=== PATIENT | female | born 1935 | race Caucasian/White ===

== ENCOUNTER → 2016-04-13 | Outpatient (REF) | payer MEDICARE, MEDICAID ==
[~2016-04-13] MED LIST: /MOXI40TA; /PANT40TA; /WARF25TA; /WARF5TA; ACET65TA; ALBU1.25 INH; ALBU17IN2 NEB; ARTH1TAB PO; ASPI81TA45 PO; BABY81CH; COUM2TAB10 PO; COUMADIN5 PO; DOCU10CA PO; FORM12CA INH; HCTZ25 PO; IPRASOL4 NEB; IRON65TA PO; LEVO50TA5 PO; LISI20TA5; MIRA3350 PO; NICO14DI3; NICO21DI4; NICO21DI5 TD; NORV5TAB; NORV5TAB PO; NYAM10003 TOP; Oxygen; PRED20TA; PULM0.5S INH; PULM1SUS INH; TYLE325T5 PO; ULTR37.52 PO; VESICARE; VESICARE PO; VITA-113 SQ; XARE20TA PO; ZEST20TA8 PO; ZESTORET20 PO; ZOCO20TA PO; ZOCOR20 PO; oxygen
[2016-04-13 14:22] LABS: FREE T4 1.13 NG/DL (0.76-1.46)
== END ==
LOC: M SFHCPLAZ 11:33
PROVIDERS: ATTEND Family Medicine
DX: E03.9 Hypothyroidism, unspecified (principal); Z51.81 Encounter for therapeutic drug level monitoring; Z79.01 Long term (current) use of anticoagulants
CPT/HCPCS: 84439; 84443; 85610; G0463

== ENCOUNTER → 2016-05-13 | Outpatient (REF) | payer MEDICARE, MEDICAID ==
[2016-05-13 18:23] LABS: INR 1.57
[2016-05-13 18:47] LABS: BASO % 0.3 % (0.0-1.0); EOS # 0.1 K/mm3 (0.0-0.50); EOS % 1.7 % (0.0-3.0); LARGE UNSTAINED CELL # 0.2 K/mm3 (0.0-0.4); LARGE UNSTAINED CELL % 2.3 % (0.0-4.0); LYMPH # 1.8 K/mm3 (1.5-4.5); LYMPH % 20.8 % (24.0-44.0); MEAN CORPUSCULAR HEMOGLOBIN 31.1 pg (27.0-33.0); MEAN CORPUSCULAR HGB CONC 31.7 g/dl (32.0-36.5); MEAN CORPUSCULAR VOLUME 97.9 fl (80.0-96.0); MONO # 0.6 K/mm3 (0.0-0.8); MONO % 8.1 % (0.0-5.0); NEUTROPHILS # 5.2 K/mm3 (1.8-7.7); NEUTROPHILS % 66.7 % (36.0-66.0); PLATELET COUNT, AUTOMATED 233 k/mm3 (150-450); RED CELL DISTRIBUTION WIDTH 13.3 % (11.5-14.5); WHITE BLOOD COUNT 7.8 K/mm3 (4.0-10.0)
[2016-05-13 18:56] LABS: ALBUMIN 3.7 GM/DL (3.2-5.2); ALBUMIN/GLOBULIN RATIO 1.12 (1.00-1.93); BILIRUBIN,TOTAL 0.2 MG/DL (0.2-1.0); CALCIUM LEVEL 8.8 MG/DL (8.8-10.2); CREATININE FOR GFR 1.19 MG/DL (0.55-1.02); GLOMERULAR FILTRATION RATE 46.6 (>39); POTASSIUM SERUM 5.1 MEQ/L (3.5-5.1)
== END ==
LOC: M SFHCPLAZ 14:38
PROVIDERS: ATTEND Nurse Practitioner Family
DX: I48.2 Chronic atrial fibrillation (principal); J44.9 Chronic obstructive pulmonary disease, unspecified; I10 Essential (primary) hypertension
CPT/HCPCS: 36415; 80053; 85025; 85610; G0463

== ENCOUNTER → 2016-06-15 | Day surgery (SDC) | payer MEDICARE, MEDICAID ==
[~2016-06-15] VITALS: Ht 160 cm; Wt 113.4 kg
[~2016-06-15] MED LIST changes: +ACETAMINOPHEN 325 MG TAB PO PRN; +ACETYLCHOLINE OPHTH SOLN 1% 2ML As Ordered ONE; +AcetaZOLAMIDE 500 MG ER CAP PO ONE; +BSS with VANC/TOB/EPI for EYE CASES IR ONE; +CYCLOPENTOLATE 2% OPHTH SOLN XX ONE; +D5W/0.2% SODIUM CHLORIDE 250 ML IV SCH; +HEALON DUET (HEALON 10MG/ML 0.55ML & HEALON ENDOCOAT 30MG/ML 0.85ML) As Ordered ONE; +KETOROLAC 0.5% OPHTH SOLN OS ONE; +LIDOCAINE 1% SDV 5 ML VIAL As Ordered ONE; +LIDOCAINE 4% INJ 5 ML AMP OU ONE; +MIDAZOLAM INJ 2 MG/2 ML VIAL (J2250) As Ordered ONE; +MOXIFLOXACIN IN BSS 0.25MG/0.25ML INTRACAMERAL INJ (OR EYE ONLY)(J2280) As Ordered ONE; +OFLOXACIN 0.3 % (OCUFLOX) OPTH SOL 5ML XX ONE; +PHENYLEPHRINE 2.5% OPHTH SOL 2ML XX ONE; +POVIDONE-IODINE 5% OPHTH PREP SOL 30ML As Ordered ONE; +PROPARACAINE 0.5% OPHTH SOL 15ML OS PRN; +PROPARACAINE 0.5% OPHTH SOL 15ML XX PRN; +TRIAMCINOLONE PRES FR 40 MG/ML 1ML(TRIESENCE)(OR EYE ONLY)(J3300 PER 1MG) As Ordered ONE; +TRIMETHOBENZAMIDE 300 MG CAP PO PRN; +TROPICAMIDE 1% OPHTH SOLN 2 ML XX ONE; +fentaNYL 100 MCG/2 ML INJECTION (J3010) As Ordered ONE
[2016-06-15 13:15] VITALS: BP 150/72
== END | disposition home or self-care (01) ==
LOC: M SDC 10:37
PROVIDERS: ATTEND Ophthalmology
DX: H26.9 Unspecified cataract (principal); I10 Essential (primary) hypertension; E78.5 Hyperlipidemia, unspecified; E03.9 Hypothyroidism, unspecified; Z86.73 Personal history of transient ischemic attack (TIA), and cerebral infarction without residual deficits; Z79.01 Long term (current) use of anticoagulants; Z99.81 Dependence on supplemental oxygen; Z79.899 Other long term (current) drug therapy; R06.02 Shortness of breath
CPT/HCPCS: 66984; 67515; J2250; J2280; J3010; J3300; V2632

== ENCOUNTER → 2016-07-15 | Outpatient (REF) | payer MEDICARE, MEDICAID ==
[~2016-07-15] MED LIST changes: -ACETAMINOPHEN 325 MG TAB PO PRN; -ACETYLCHOLINE OPHTH SOLN 1% 2ML As Ordered ONE; -AcetaZOLAMIDE 500 MG ER CAP PO ONE; -BSS with VANC/TOB/EPI for EYE CASES IR ONE; -CYCLOPENTOLATE 2% OPHTH SOLN XX ONE; -D5W/0.2% SODIUM CHLORIDE 250 ML IV SCH; -HEALON DUET (HEALON 10MG/ML 0.55ML & HEALON ENDOCOAT 30MG/ML 0.85ML) As Ordered ONE; -KETOROLAC 0.5% OPHTH SOLN OS ONE; -LIDOCAINE 1% SDV 5 ML VIAL As Ordered ONE; -LIDOCAINE 4% INJ 5 ML AMP OU ONE; -MIDAZOLAM INJ 2 MG/2 ML VIAL (J2250) As Ordered ONE; -MOXIFLOXACIN IN BSS 0.25MG/0.25ML INTRACAMERAL INJ (OR EYE ONLY)(J2280) As Ordered ONE; -OFLOXACIN 0.3 % (OCUFLOX) OPTH SOL 5ML XX ONE; -PHENYLEPHRINE 2.5% OPHTH SOL 2ML XX ONE; -POVIDONE-IODINE 5% OPHTH PREP SOL 30ML As Ordered ONE; -PROPARACAINE 0.5% OPHTH SOL 15ML OS PRN; -PROPARACAINE 0.5% OPHTH SOL 15ML XX PRN; -TRIAMCINOLONE PRES FR 40 MG/ML 1ML(TRIESENCE)(OR EYE ONLY)(J3300 PER 1MG) As Ordered ONE; -TRIMETHOBENZAMIDE 300 MG CAP PO PRN; -TROPICAMIDE 1% OPHTH SOLN 2 ML XX ONE; -fentaNYL 100 MCG/2 ML INJECTION (J3010) As Ordered ONE
[2016-07-15 15:59] LABS: BASO % 0.4 % (0.0-1.0); EOS # 0.1 K/mm3 (0.0-0.50); EOS % 0.9 % (0.0-3.0); LARGE UNSTAINED CELL # 0.2 K/mm3 (0.0-0.4); LARGE UNSTAINED CELL % 2.1 % (0.0-4.0); LYMPH # 1.6 K/mm3 (1.5-4.5); LYMPH % 19.5 % (24.0-44.0); MEAN CORPUSCULAR HEMOGLOBIN 30.8 pg (27.0-33.0); MEAN CORPUSCULAR HGB CONC 32.2 g/dl (32.0-36.5); MEAN CORPUSCULAR VOLUME 95.6 fl (80.0-96.0); MONO # 0.5 K/mm3 (0.0-0.8); MONO % 6.1 % (0.0-5.0); NEUTROPHILS # 5.4 K/mm3 (1.8-7.7); PLATELET COUNT, AUTOMATED 235 k/mm3 (150-450); RED CELL DISTRIBUTION WIDTH 13.1 % (11.5-14.5); WHITE BLOOD COUNT 7.6 K/mm3 (4.0-10.0)
[2016-07-15 16:01] LABS: INR 2.12
[2016-07-15 16:24] LABS: ALBUMIN/GLOBULIN RATIO 1.18 (1.00-1.93); BILIRUBIN,TOTAL 0.4 MG/DL (0.2-1.0); CALCIUM LEVEL 8.8 MG/DL (8.8-10.2); CREATININE FOR GFR 1.18 MG/DL (0.55-1.02); POTASSIUM SERUM 4.6 MEQ/L (3.5-5.1); TOTAL PROTEIN 7.4 GM/DL (6.4-8.2)
== END ==
LOC: M SFHCPLAZ 14:19
PROVIDERS: ATTEND Nurse Practitioner Family
DX: Z01.818 Encounter for other preprocedural examination (principal); I48.2 Chronic atrial fibrillation; Z79.01 Long term (current) use of anticoagulants; Z79.899 Other long term (current) drug therapy
CPT/HCPCS: 80053; 85025; 85610; G0463

== ENCOUNTER 2016-10-10 11:51 | Emergency (ER) | payer MEDICARE, MEDICAID ==
[~2016-10-10 11:51] MED LIST changes: -COUM2TAB10 PO; +COUM2TAB22 PO; -ULTR37.52 PO; +ULTR37.54 PO
[2016-10-10] MEDS ORDERED: ASPIRIN 81 MG CHEW TABLET PO ONE (12:15)
[2016-10-10] MEDS ORDERED: IPRATROPIUM 0.5MG/ALBUTEROL 2.5MG INH SOL UD 3ML (DUONEB)(J7620) NEB ONE (12:30)
[2016-10-10 12:36] LABS: BASO % 0.5 % (0.0-1.0); EOS # 0.2 K/mm3 (0.0-0.50); EOS % 2.7 % (0.0-3.0); LARGE UNSTAINED CELL # 0.1 K/mm3 (0.0-0.4); LARGE UNSTAINED CELL % 2.1 % (0.0-4.0); LYMPH # 1.4 K/mm3 (1.5-4.5); LYMPH % 19.3 % (24.0-44.0); MEAN CORPUSCULAR HGB CONC 30.7 g/dl (32.0-36.5); MEAN CORPUSCULAR VOLUME 97.5 fl (80.0-96.0); MONO # 0.4 K/mm3 (0.0-0.8); MONO % 6.6 % (0.0-5.0); NEUTROPHILS # 4.7 K/mm3 (1.8-7.7); NEUTROPHILS % 68.8 % (36.0-66.0); PLATELET COUNT, AUTOMATED 267 k/mm3 (150-450); RED CELL DISTRIBUTION WIDTH 13.7 % (11.5-14.5); WHITE BLOOD COUNT 6.8 K/mm3 (4.0-10.0)
[2016-10-10 12:54] LABS: ALBUMIN 3.5 GM/DL (3.2-5.2); ALBUMIN/GLOBULIN RATIO 1.06 (1.00-1.93); ALKALINE PHOSPHATASE 97 U/L (45-117); ALT/SGPT 16 U/L (12-78); ANION GAP 5 MEQ/L (8-16); AST/SGOT 11 U/L (15-37); BILIRUBIN,DIRECT < 0.1 MG/DL (0.0-0.2); BILIRUBIN,TOTAL 0.3 MG/DL (0.2-1.0); BLOOD UREA NITROGEN 27 MG/DL (7-18); CALCIUM LEVEL 8.6 MG/DL (8.8-10.2); CARBON DIOXIDE LEVEL 29 MEQ/L (21-32); CHLORIDE LEVEL 107 MEQ/L (98-107); CREATININE FOR GFR 1.16 MG/DL (0.55-1.02); GLUCOSE, FASTING 108 MG/DL (83-110); POTASSIUM SERUM 4.4 MEQ/L (3.5-5.1); SODIUM LEVEL 141 MEQ/L (136-145); TOTAL PROTEIN 6.8 GM/DL (6.4-8.2)
--- NOTE | 2016-10-10 13:26 | REP ---
PORTABLE CHEST, ONE VIEW: HISTORY: Chest pain. COMPARISON: 06/29/2014 An increase in interstitial markings is present in the lungs consistent with chronic interstitial fibrosis. The cardiac silhouette is enlarged. The pulmonary vasculature is normal in appearance. IMPRESSION: 1. Chronic interstitial fibrosis. 2. Cardiomegaly. Signed by Wang Rabago MD 10/10/2016 01:42 P
--- NOTE | 2016-10-10 13:43 | REP ---
CT HEAD WITHOUT CONTRAST: HISTORY: Altered mental status. COMPARISON: 05/31/2008 Areas of decreased attenuation are present in the basal ganglia. These represent old lacunar infarctions. Areas of decreased attenuation are present in the periventricular and subcortical white matter. This represents small vessel ischemic disease. There is no intraparenchymal hemorrhage, mass or midline shift. The ventricular system and cortical sulci are dilated consistent with mild volume loss. There is no extracerebral collection. Mucosal thickening is present in the sphenoid sinus. IMPRESSION: 1. Old bilateral basal ganglia lacunar infarctions. 2. Small vessel ischemic disease. 3. Mild volume loss. Signed by Wang Rabago MD 10/10/2016 01:51 P
--- NOTE | 2016-10-10 14:40 | REP ---
AP AND LATERAL RIGHT KNEE, TWO VIEWS: HISTORY: None There is no acute fracture or dislocation. There is narrowing of the joint space with associated osteophyte formation. IMPRESSION: There is no acute fracture or dislocation. Signed by Wang Rabago MD 10/10/2016 02:49 P
[2016-10-10 16:06] VITALS: BP 121/57
--- NOTE | 2016-10-10 16:59 | ECGEPIP ---
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
== END 2016-10-10 16:22 | disposition home or self-care (01) ==
LOC: M ED 11:51 → EDBD 11:51 → M ED 16:22
DX: R53.1 Weakness (principal); I10 Essential (primary) hypertension; E78.5 Hyperlipidemia, unspecified; J44.9 Chronic obstructive pulmonary disease, unspecified; M19.90 Unspecified osteoarthritis, unspecified site; I51.7 Cardiomegaly; E03.9 Hypothyroidism, unspecified; Z86.73 Personal history of transient ischemic attack (TIA), and cerebral infarction without residual deficits; F17.200 Nicotine dependence, unspecified, uncomplicated; Z79.01 Long term (current) use of anticoagulants; Z79.899 Other long term (current) drug therapy; Z99.81 Dependence on supplemental oxygen

== ENCOUNTER → 2016-10-16 | Outpatient (REF) | payer MEDICARE, MEDICAID ==
[2016-10-16 19:53] LABS: INR 3.14
== END ==
LOC: M SFHCPLAZ 15:20
PROVIDERS: ATTEND Family Medicine
DX: Z51.81 Encounter for therapeutic drug level monitoring (principal); Z79.01 Long term (current) use of anticoagulants
CPT/HCPCS: 85610; G0463

== ENCOUNTER → 2016-11-09 | Outpatient (CLI) | payer MEDICARE, MEDICAID ==
--- NOTE | 2016-11-09 16:42 | REP ---
Bilateral carotid artery duplex ultrasound: Peak flow velocity analysis: RIGHT LEFT ICA. Peak flow velocity cm/sec 41 125 ICA Diastolic flow velocity cm/sec 11 46 ICA/CCA Ratio 0.59 1.69 There is moderate atheromatous plaque in the common carotid artery and bulb on the right and in the common carotid artery bulb and proximal ICA on the left. The peak flow velocities are normal bilaterally. There is less than 50% stenosis bilaterally. There is no significant stenosis on the right on the left. There is antegrade flow in the vertebral arteries bilaterally Signed by Mauricio Antony MD 11/09/2016 04:33 P
== END ==
LOC: M RAD 14:19
PROVIDERS: ATTEND Family Medicine
DX: I65.21 Occlusion and stenosis of right carotid artery (principal)

== ENCOUNTER 2018-08-28 01:34 | Inpatient (IN) | payer MEDICARE, MEDICAID ==
[~2018-08-28] VITALS: Ht 172.7 cm; Wt 75.8 kg
[2018-08-28] VITALS (17 sets, daily range): BP systolic 73–105; BP diastolic 42–56; O2SAT 100
[~2018-08-28 01:34] MED LIST changes: -/MOXI40TA; -/PANT40TA; -/WARF25TA; -/WARF5TA; +AVEL1TAB2; +COUM1TAB17; +COUM1TAB18; +IPRA0.00 NEB; -IPRASOL4 NEB; -NICO21DI5 TD; +NICO21DI6 TD; +PROT1TAB2
[2018-08-28] MEDS ORDERED: NOREPINEPHRINE BITARTRATE 8 MG in D5W 492 ML IV SCH ×8 (01:45→12:00)
[2018-08-28] MEDS ORDERED: NS 1,000 ML IV ONE (01:45)
[2018-08-28 01:56] LABS: ABG BASE EXCESS -15.4 (-2.0-2.0); ABG HCO3 13.4 MEQ/L (22.0-26.0); ABG O2 SATURATION 99.2 % (95.0-99.0); ABG PARTIAL PRESSURE CO2 49.2 mmHg (35.0-45.0); ABG PARTIAL PRESSURE O2 190.3 mmHg (75.0-100.0); ABG STANDARD HCO3 12.1 MEQ/L (22.0-26.0); ABG TOTAL CO2 14.9 MEQ/L (23.0-31.0)
[2018-08-28 01:59] LABS: ABG pH (ARTERIAL) 7.054 UNITS (7.350-7.450)
[2018-08-28 03:18] LABS: BASO % 0.2 % (0.0-1.0); EOS % 0.4 % (0.0-3.0); LYMPH # 0.9 10^3/uL (1.5-4.5); LYMPH % 9.7 % (24.0-44.0); MEAN CORPUSCULAR HEMOGLOBIN 17.9 pg (27.0-33.0); MEAN CORPUSCULAR HGB CONC 23.3 g/dl (32.0-36.5); MEAN CORPUSCULAR VOLUME 76.9 fl (80.0-96.0); MONO # 0.1 10^3/uL (0.0-0.8); MONO % 1.4 % (0.0-5.0); NEUTROPHILS # 7.8 10^3/uL (1.8-7.7); NEUTROPHILS % 83.7 % (36.0-66.0); PLATELET COUNT, AUTOMATED 258 10^3/uL (150-450); RED BLOOD COUNT 2.73 10^6/uL (4.00-5.40); WHITE BLOOD COUNT 9.3 10^3/uL (4.0-10.0)
[2018-08-28 03:24] LABS: HEMOGLOBIN 4.9 g/dl (12.0-15.5)
[2018-08-28 03:29] LABS: INR 1.31; PROTHROMBIN TIME 16.5 SECONDS (12.1-14.4)
[2018-08-28 03:30] LABS: PARTIAL THROMBOPLASTIN TIME 32.1 SECONDS (25.4-37.6)
[2018-08-28 03:38] LABS: BILIRUBIN, URINE MANUAL NEGATIVE (NEGATIVE); GLUCOSE, URINE (UA) MANUAL NEGATIVE (NEGATIVE); KETONE, URINE MANUAL NEGATIVE (NEGATIVE); UROBILINOGEN, URINE MANUAL NORMAL (NORMAL)
[2018-08-28 03:40] LABS: ALBUMIN 2.6 GM/DL (3.2-5.2); BILIRUBIN,DIRECT 0.2 MG/DL (0.0-0.2); BILIRUBIN,TOTAL 0.4 MG/DL (0.2-1.0); MB/CK RELATIVE INDEX 2.21 (< OR =4); TOTAL PROTEIN 5.8 GM/DL (6.4-8.2); TROPONIN I 0.04 NG/ML (< 0.10)
[2018-08-28 03:44] LABS: RBC, URINE TNTC /hpf (0-3)
[2018-08-28 03:45] LABS: BACTERIA, URINE SMALL AMOUNT; SQUAMOUS EPITHELIAL CELL URINE MOD AMOUNT /hpf (SMALL AMT); TRANSITIONAL EPI CELLS, URINE MOD AMOUNT /hpf
[2018-08-28 03:48] LABS: AMORPHOUS SEDIMENT, URINE MOD AMOUNT (NEGATIVE)
[2018-08-28 03:52] LABS: HYALINE CAST, URINE NONE SEEN /lpf (0-1); TRIPLE PHOSPHATE CRYSTAL,URINE SMALL AMOUNT /hpf
[2018-08-28] MEDS ORDERED: PIPERACILLIN/TAZOBACTAM SOD 3.375 GM in D5W MINI-BAG PLUS 50 ML IV ONE (04:00)
[2018-08-28] MEDS ORDERED: APAP325T4 PO (04:03)
[2018-08-28] MEDS ORDERED: ELIQ2.5T PO (04:03)
[2018-08-28] MEDS ORDERED: HYDR-3713 PO (04:03)
[2018-08-28] MEDS ORDERED: PATIENT COMMENTS (04:05)
[2018-08-28 04:31] LABS: ABG BASE EXCESS -8.4 (-2.0-2.0); ABG HCO3 17.6 MEQ/L (22.0-26.0); ABG O2 SATURATION 98.6 % (95.0-99.0); ABG PARTIAL PRESSURE CO2 38.9 mmHg (35.0-45.0); ABG PARTIAL PRESSURE O2 126.9 mmHg (75.0-100.0); ABG STANDARD HCO3 17.5 MEQ/L (22.0-26.0); ABG TOTAL CO2 18.8 MEQ/L (23.0-31.0); ABG pH (ARTERIAL) 7.274 UNITS (7.350-7.450)
[2018-08-28] MEDS ORDERED: MIDAZOLAM INJ 2 MG/2 ML VIAL (J2250) IV PRN (05:30)
[2018-08-28 05:32] LABS: BASO % 0.1 % (0.0-1.0); HEMATOCRIT 18.5 % (36.0-47.0); LYMPH # 0.4 10^3/uL (1.5-4.5); LYMPH % 4.5 % (24.0-44.0); MEAN CORPUSCULAR HEMOGLOBIN 18.6 pg (27.0-33.0); MEAN CORPUSCULAR HGB CONC 24.9 g/dl (32.0-36.5); MEAN CORPUSCULAR VOLUME 74.9 fl (80.0-96.0); MONO # 0.4 10^3/uL (0.0-0.8); MONO % 3.7 % (0.0-5.0); NEUTROPHILS # 8.9 10^3/uL (1.8-7.7); NEUTROPHILS % 90.5 % (36.0-66.0); PLATELET COUNT, AUTOMATED 203 10^3/uL (150-450); RED BLOOD COUNT 2.47 10^6/uL (4.00-5.40); WHITE BLOOD COUNT 9.8 10^3/uL (4.0-10.0)
[2018-08-28 05:35] LABS: HEMOGLOBIN 4.6 g/dl (12.0-15.5)
--- NOTE | 2018-08-28 05:44 | REPVR ---
EXAM: CT Head Without Contrast EXAM DATE/TIME: 08/28/2018 4:06 AM CLINICAL HISTORY: 83 years old, female; Signs and symptoms; Altered mental status/memory loss; Confusion or disorientation; Additional info: AMS TECHNIQUE: Imaging protocol: Axial computed tomography images of the head without contrast. Radiation optimization: All CT scans at this facility use at least one of these dose optimization techniques: automated exposure control; mA and/or kV adjustment per patient size (includes targeted exams where dose is matched to clinical indication); or iterative reconstruction. COMPARISON: CT Head without contrast 10/10/2016 12:38 PM FINDINGS: Brain: Small old lacunar infarct in left basal ganglia. Ventricles: Normal. No ventriculomegaly. Bones/joints: Slight deformity of the nasal bones which likely reflects old injury. Sinuses: Minimal bilateral maxillary, sphenoid and ethmoid sinus mucosal thickening. Mastoid air cells: Opacification of mastoid air cells bilaterally and middle ear cavities, left greater than right. Soft tissues: Unremarkable. IMPRESSION: 1. Bilateral mastoiditis and otitis media, increased since 10/10/2016. 2. Decreased sphenoid sinus disease. Minimal residual remains. There is also minimal bilateral maxillary and ethmoid sinus disease. 3. Probable old nasal fractures. 4. Small old lacunar infarct in the lateral left basal ganglia. 5. Otherwise negative noncontrast head CT. Electronically signed by: Jean Marie Ribeiro On 08/28/2018 05:44:26 AM
--- NOTE | 2018-08-28 05:57 | REPVR ---
EXAM: CT Cervical Spine Without Contrast EXAM DATE/TIME: 08/28/2018 4:06 AM CLINICAL HISTORY: 83 years old, female; Signs and symptoms; Other: Altered mental status; Additional info: AMS TECHNIQUE: Imaging protocol: Axial computed tomography images of the cervical spine without contrast. Coronal and sagittal reformatted images were created and reviewed. Radiation optimization: All CT scans at this facility use at least one of these dose optimization techniques: automated exposure control; mA and/or kV adjustment per patient size (includes targeted exams where dose is matched to clinical indication); or iterative reconstruction. COMPARISON: US Duplex,carotid (complete) 11/09/2016 2:44 PM FINDINGS: Tubes, catheters and devices: Right internal jugular central line in position. ET tube in position. Vertebrae: Lucency extending through the anterosuperior margin of the C5 segment which appears well marginated and corticated suggesting residua of old fracture. C2-C3: The disc is well-maintained. There are degenerative changes, greatest in the right apophyseal joint with no spinal or foraminal stenosis. C3-C4: Slight anterior listhesis with bilateral degenerative changes of the apophyseal joints, left greater than right. There is low normal size of the neural foramen. C4-C5: Slight anterolisthesis and bilateral degenerative changes, greatest in the left apophyseal joint. No spinal stenosis. There is mild left neural foraminal stenosis. C5-C6: Mild interspace narrowing with minimal posterior osteophytes and bilateral degenerative changes. There is low normal size of the spinal canal and mild bilateral neural foraminal stenosis. C6-C7: Mild interspace narrowing with slight anterolisthesis and bilateral degenerative changes with no significant spinal or foraminal stenosis. C7-T1: Mild interspace narrowing with slight anterior listhesis. No significant spinal or foraminal stenosis. Other bones/joints: Old right clavicular fracture. Soft tissues: Unremarkable. Sinuses: Minimal sphenoid sinus mucosal thickening. Mastoid air cells: Opacification of mastoid air cells and middle ear cavities. Lungs: Biapical interstitial prominence and minimal infiltrates. Pleural space: Bilateral pleural effusions, left greater than right. IMPRESSION: 1. Right internal jugular central line in position. 2. ET tube in position. 3. Bilateral pleural effusions, left greater than right with biapical interstitial prominence and minimal infiltrates. 4. Bilateral mastoiditis and otitis media. 5. Minimal sphenoid sinus disease. 6. Multilevel degenerative changes of the cervical spine with no spinal stenosis. There are varying degrees of neural foraminal stenosis. 7. No acute fracture or subluxation. 8. Lucency extending through the anterosuperior aspect of the C5 segment suggesting residua of old fracture. Electronically signed by: Jean Marie Ribeiro On 08/28/2018 05:56:17 AM
--- NOTE | 2018-08-28 06:10 | REPVR ---
EXAM: CT Abdomen and Pelvis Without Contrast EXAM DATE/TIME: 08/28/2018 4:06 AM CLINICAL HISTORY: 83 years old, female; Signs and symptoms; Other: Altered mental status; Additional info: AMS TECHNIQUE: Imaging protocol: Axial computed tomography images of the abdomen and pelvis without contrast. Coronal and sagittal reformatted images were created and reviewed. Radiation optimization: All CT scans at this facility use at least one of these dose optimization techniques: automated exposure control; mA and/or kV adjustment per patient size (includes targeted exams where dose is matched to clinical indication); or iterative reconstruction. COMPARISON: CT ABD PELVIS W/O CONTRAST 09/07/2013 11:16 AM FINDINGS: Tubes, catheters and devices: Central line extending just into the right atrium. Lungs: Minimal infiltrates in the lateral right middle lobe. Pleural space: Mild bilateral pleural effusions with left lower lobe and to a lesser degree lingular and right lower lobe atelectasis. Heart: Trace pericardial effusion. ABDOMEN: Liver: Normal. No mass. Gallbladder and bile ducts: Normal. No calcified stones. No ductal dilation. Pancreas: Normal. No ductal dilation. Spleen: Normal. No splenomegaly. Adrenals: Slight fullness of the adrenals bilaterally which may reflect hyperplasia. Kidneys and ureters: There are left renal cysts measuring up to 3.3 cm. Stomach and bowel: There is colonic diverticulosis without evidence of diverticulitis. Appendix: Question of partial visualization of a normal appendix. PELVIS: Bladder: There is a Weinstein catheter in the bladder. Reproductive: Gas within the fundal endometrium of the uterus. Mass extending anteriorly from the uterus measuring 5.6 cm with low attenuation centrally may reflect a degenerating fibroid. ABDOMEN and PELVIS: Intraperitoneal space: Normal. No free air. No significant fluid collection. Bones/joints: Fractures of the left 6th and 7th ribs anterolaterally and the right 5th-7th ribs anterolaterally. 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 Soft tissues: Unremarkable. Vasculature: There is prominent atherosclerotic calcification of the abdominal aorta with extension into the iliac arteries. Lymph nodes: Normal. No enlarged lymph nodes. IMPRESSION: 1. Bilateral pleural effusions with left lower lobe and to a lesser degree lingular and right lower lobe atelectasis, new since 09/07/2013. 2. Minimal infiltrates in the lateral right middle lobe which are new since the prior study. 3. Trace pericardial effusion. 4. Acute appearing fractures of bilateral ribs anterolaterally. 5. Weinstein catheter in the bladder. 6. Colonic diverticulosis without diverticulitis. 7. Gas within the fundal endometrium of the uterus of uncertain etiology. 8. Inhomogeneous mass extending anteriorly from the uterine fundus which may reflect a degenerating fibroid measuring 5.6 cm and is similar to 09/07/2013. Electronically signed by: Jean Marie Ribeiro On 08/28/2018 06:09:27 AM
--- NOTE | 2018-08-28 06:19 | REPVR ---
EXAM: CT Chest Without Contrast EXAM DATE/TIME: 08/28/2018 4:06 AM CLINICAL HISTORY: 83 years old, female; Signs and symptoms; Other: Altered mental status; Additional info: AMS TECHNIQUE: Imaging protocol: Axial computed tomography images of the chest without intravenous contrast. Coronal and sagittal reformatted images were created and reviewed. Radiation optimization: All CT scans at this facility use at least one of these dose optimization techniques: automated exposure control; mA and/or kV adjustment per patient size (includes targeted exams where dose is matched to clinical indication); or iterative reconstruction. COMPARISON: CR Chest, 1 view 08/28/2018 2:50 AM FINDINGS: Tubes, catheters and devices: ET tube with the tip 13 mm above the laz. Right internal jugular central line to the cavoatrial junction. Lungs: Interstitial prominence with patchy infiltrates in the remaining lungs and scattered bullous change. Pleural space: Mild bilateral pleural effusions with complete atelectasis of the left lower lobe and moderate atelectasis of the lingula and right lower lobe. There is mild bilateral upper lobe atelectasis. Heart: Trace pericardial effusion. Aorta: The ascending thoracic aorta measures 35 mm. Lymph nodes: Unremarkable. No enlarged lymph nodes. Bones/joints: Degenerative changes of the shoulders. Acute appearing fractures of the right 3rd-7th ribs anterolaterally and the left 3rd-7th ribs anterolaterally. Soft tissues: Unremarkable. Kidneys and ureters: There is a left renal cyst measuring up to 3.3 cm. IMPRESSION: 1. ET tube with the tip 13 mm above the laz. 2. Right internal jugular central line to the cavoatrial junction. 3. Mild bilateral pleural effusions with complete atelectasis of the left lower lobe, moderate atelectasis of the lingula and right lower lobe and mild bilateral upper lobe atelectasis. 4. Interstitial prominence with patchy infiltrates and scattered bullous change in the remaining lungs. 5. Trace pericardial fusion. 6. Acute appearing nondisplaced fractures of the 3rd-7th ribs bilaterally at the anterolateral aspects. 7. Otherwise negative CT chest. Electronically signed by: Jean Marie Ribeior On 08/28/2018 06:18:49 AM
--- NOTE | 2018-08-28 06:40 | ECGEPIP ---
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
--- NOTE | 2018-08-28 07:15 | REP ---
Clinical: Status post intubation. Technique: Two portable semiupright views of the chest. Findings: Most recent image demonstrates the endotracheal tube at the laz. Right IJ line with tip in the right atrium. Large left pleural effusion obscures the cardiac silhouette. Underlying left lower lobe atelectasis/consolidation along with moderate right basilar opacity noted. No pneumothorax. Skeletal structures demonstrate age-related changes. Impression: 1. Endotracheal tube requires repositioning. 2. Large left pleural effusion along with bibasilar opacities (left greater than right). Electronically Signed by Ankur Palacios MD 08/28/2018 07:06 A
[2018-08-28 07:33] LABS: CALCIUM LEVEL 7.4 MG/DL (8.8-10.2); CREATININE FOR GFR 1.6 MG/DL (0.55-1.30); GLOMERULAR FILTRATION RATE 32.9 (>32); MAGNESIUM LEVEL 2.4 MG/DL (1.8-2.4); PHOSPHORUS LEVEL 4.1 MG/DL (2.5-4.9); POTASSIUM SERUM 4.7 MEQ/L (3.5-5.1)
[2018-08-28 08:01] LABS: MB/CK RELATIVE INDEX 2.55 (< OR =4); TROPONIN I 0.12 NG/ML (< 0.10)
--- NOTE | 2018-08-28 08:03 | HPE ---
DATE OF ADMISSION: 08/28/2018 CHIEF COMPLAINT: Cardiac arrest. HISTORY OF PRESENT ILLNESS: History was obtained from the patient's family and from the chart as she is intubated and unable to provide a history. Ms. Dejesus is an 83-year-old female with a history of atrial fibrillation, pulmonary embolism (PE) - on anticoagulation, CVA, chronic obstructive pulmonary disease (COPD) with chronic hypoxemic respiratory failure - on 2 liters nasal cannula oxygen supplementation, history of previous gastrointestinal (GI) bleed, hypothyroidism, history of an ovarian mass who presented to the hospital after cardiac arrest at home. As per patient's family, she had been complaining of increasing lethargy and sleepiness for the past few days as well as intermittent nausea. Earlier that day, the patient had been feeling nauseous, did not have any episodes of vomiting. She did not notice any blood in her stool. She had denied any chest pain. She has chronic shortness of breath, which is unchanged. The patient is still currently an active smoker of approximately four cigarettes a day. Earlier in the evening, the patient's family reported she had been in the kitchen when they heard a thud and found the patient on the floor. She was still breathing at that time. However, she then was noted to stop breathing. The patient's daughter called [id number] and attempted to start cardiopulmonary resuscitation (CPR) but was not very successful. Emergency medical services (EMS) arrived and CPR was started at that time. The patient was noted on EMS arrival to be in a pulseless electrical activity (PEA) arrest. She had approximately five rounds of epi given during CPR within approximately 30-35 minutes of CPR. She had return of spontaneous circulation (ROSC) achieved. The patient was intubated during the code. On arrival to the emergency department (ED), she was hypotensive and was started on Levophed as well as given normal saline bolus. In the ED, the patient was unresponsive. Did not appear to have a gag reflex, her pupils were dilated and unresponsive as well. She was sent for imaging. The patient was also given in the ED Zosyn for broad-spectrum antibiotics. PAST MEDICAL/SURGICAL HISTORY: 1. COPD with chronic hypoxemic respiratory failure - on nasal cannula oxygen. 2. Hyperlipidemia. 3. Hypertension. 4. Hypothyroidism. 5. History of atrial fibrillation. 6. CVA. 7. PE - on Eliquis. 8. History of GI bleed previously 9. History of an ovarian mass diagnosed in 2013, was not felt to be a surgical candidate at that time. 10. History of hemorrhoids, diverticulosis. 11. Right eye cataract surgery. 12. Bed bugs. 13. History of scabies. FAMILY HISTORY: Mother with a history of myocardial infarction ([place]). Father with a history of stomach cancer. SOCIAL HISTORY: Current active smoker of four cigarettes a day, previously had smoked more for many years. ALLERGIES: Reportedly to XARELTO with a history of GI bleeding. HOME MEDICATIONS: Incruse, levothyroxine 25 mcg, amlodipine 10 mg, Zocor, Ventolin, Eliquis 2.5 mg twice a day, Percocet as needed. PHYSICAL EXAMINATION: Temperature 97, pulse 73, respirations 18, blood pressure 94/50, oxygen saturation (O2 sat) 100% on 50% FiO2. General: Patient is intubated, is not sedated, is unresponsive to painful stimuli. HEENT: Normocephalic, atraumatic. Pupils are dilated and unresponsive on the right. There is a surgical pupil on the left. Dry mucous membranes. Neck is supple. Trachea is midline. No palpable adenopathy. Cardiac: Regular rate and rhythm. Normal S1, S2, faint systolic murmur auscultated. Pulmonary: Diminished breath sounds bilaterally, more decreased on the left base than on the right. Abdomen is soft, nondistended. There is an orogastric (OG) tube in place draining maroon-colored fluid. Extremities: There is some nonpitting lower extremity edema noted bilaterally. There are scabbed wounds in her extremities, which appear from excoriation. She was also noted to have bed bugs in the ED in her inguinal region when undressed. LABORATORY DATA: WBC 9.8, hemoglobin 4.6, platelets 203. Chemistry: The BMP is still pending, lactic acid was 11.1, AST 368, ALT 223, alkaline phosphatase 89, troponin was negative, albumin is 2.6, lipase was 223, INR was 1.31, PTT was 32.1. ABG: pH 7.274, pCO2 of 38.9, pO2 of 126.9. UA was positive for blood with trace nitrites and positive leukocyte esterase, and there was a small amount of bacteria seen. IMAGING STUDIES: Head CT showed bilateral mastoiditis and otitis media. There was probable old nasal fractures and an old small lacunar infarct in the left basal ganglia. There appears to have some loss of the cortical zavala matter/white matter differentiation and some mild effacement. Chest CT showed ET tube tip 1.3 cm above the laz. There is a right internal jugular line in the cavoatrial junction. There is evidence of emphysematous changes in the lungs with some interstitial prominence and patchy infiltrates with a pleural effusion on the left slightly greater than right and evidence of lower lobe atelectasis and consolidation, more on the left than on the right. There is a trace pericardial effusion noted. There are also fractures in the 3rd to 7th ribs bilaterally. CT abdomen and pelvis: There is no intraperitoneal free air. The previously noted rib fractures are seen again. There is a Weinstein catheter in the bladder. There is evidence of colonic diverticulosis without acute diverticulitis. There is gas in the fundal endometrium of the uterus as well as a mass extending anteriorly from the uterine fundus. This mass appears similar compared to the previous CT in 2014. There are renal cysts on the left. ASSESSMENT/PLAN: The patient is an 83-year-old female with a past medical history of COPD with chronic hypoxemic respiratory failure - on nasal cannula oxygen supplementation, atrial fibrillation, PE - on anticoagulation, previous history of GI bleed, hypothyroidism, hypertension, hyperlipidemia, current active smoker who presented with a cardiac arrest. The patient was found to be in PEA arrest on EMS arrival. She had approximately 30-35 minutes of CPR by EMS but prior to that, as per the daughter, had a down time of an additional 10 minutes for a total down time of approximately 45 minutes or more. The patient did achieve ROSC after five rounds of epinephrine but was hypotensive requiring Levophed for blood pressure support. Post arrest, the patient has been unresponsive. She has no gag reflex. She is not overbreathing the ventilator, and her pupils are dilated and unresponsive. Discussed with the patient's daughter at the bedside about her poor prognosis given likely anoxic brain injury. The patient had previously been a full code; however, had mentioned that if she were to be dependent on ventilator that she would not want to be kept alive that way. At this time, the patient's daughter is agreeable for a do not resuscitate (DNR), but they wish to discuss with other family members about further goals of care, including a possible palliative extubation at some point. Neurologic: The patient is not sedated, is not responsive. Suspect anoxic brain injury due to her cardiac arrest. Her head CT on admission did not report evidence of anoxic brain injury; however, on review of the imaging, there does appear to be some loss of the zavala-white matter differentiation. - Would hold off on sedation at this time and continue monitoring her neurologic status. Cardiovascular: History of atrial fibrillation. The patient presented with a PEA arrest. Post ROSC, the patient has been hypotensive requiring Levophed for blood pressure support. - Will continue Levophed and titrate to maintain a mean arterial pressure (MAP) above 65. Her lactic acid was elevated on admission. Will continue to trend - Initial cardiac enzymes were negative. Will repeat and trend cardiac enzymes. - Will hold antihypertensive medications and hold her anticoagulation at this time. Pulmonary: History of COPD with chronic hypoxemic respiratory failure. The patient is intubated after her cardiac arrest. Her CT shows evidence of bilateral pleural effusions and atelectasis with some other patchy opacities in the upper lobe as well as emphysematous changes bilaterally. - Would hold off on any diuresis given her shock. - Will continue with broad-spectrum antibiotics with Zosyn and follow up the results of her cultures. - Continue the patient on ventilator on PRVC. Would increase her respiratory rate to 23 given the evidence of metabolic acidosis with uncompensated respiratory acidosis. Would change her settings to 400/23/40 and 5 and followup repeat ABG. - Continue with vent bundle care with head of bed elevation and chlorhexidine mouthwash. - Continue with daily ABGs and chest x-rays while intubated. Gastrointestinal: The patient has a history of previous GI bleeds. Her hemoglobin on admission was 4.9. She did have an OG tube placed with maroon-colored output; however, she has been having loose stool with light brown color and no evidence of melena or black tarry stools. - Would continue to hold her anticoagulation. Will discuss with patient's family about blood transfusion especially given their wishes for likely palliative extubation once more family arrives. - Patient also with transaminitis, likely secondary to shock liver from her cardiac arrest. Will continue to monitor. - Would keep OG tube to low intermittent wall suction and keep patient nothing by mouth. - Will followup the results of her GI panel and cultures Renal: The patient has a Weinstein placed and has had minimal urine output. Her chemistry and renal function is still pending, but suspect she will have a component of acute kidney injury (DARSHAN) secondary to her shock. - Would need to monitor electrolytes and replete as needed. - Continue with her levothyroxine given her history of hypothyroidism. Contact isolation for bed bugs. Deep vein thrombosis (DVT) prophylaxis with thromboembolism deterrents (TEDS) and sequential compression devices (SCD). CODE STATUS: DO NOT RESUSCITATE (DNR) with a trial of intubation. Continue to follow-up with family about possible palliative extubation Total critical care time spent not including any procedures: Approximately 1 hour and 40 minutes. MTDD
[2018-08-28] MEDS ORDERED: LEVOTHYROXINE 100 MCG (0.1MG) VIAL IV SCH (09:00)
[2018-08-28] MEDS ORDERED: CHLORHEXIDINE GLUCONATE 0.12 % 15ML UDC (PERIDEX ORAL RINSE) MT SCH (09:00)
[2018-08-28] MEDS ORDERED: PANTOPRAZOLE 40MG INJ (PROTONIX) (C9113) IV SCH ×2 (09:00)
--- NOTE | 2018-08-28 10:57 | CCN ---
DATE: 08/28/2018 UPDATE The patient's family has arrived now. The patient has multiple children with sons and daughters. She has two daughters who have both previously been listed as healthcare proxy for the patient, Jennifer Parker and Toshia Anjelica. Discussed with both of her daughters, as well as her other children at the bedside about her poor prognosis with likely anoxic brain injury status post her cardiac arrest with prolonged down time before ROSC. The patient's family stated that she had previously stated he would not want to be kept on the ventilator if there was poor chance for functional neurologic recovery. Therefore, after further discussion, her family is all in agreement for a DO NOT RESUSCITATE, as well as for a palliative extubation with comfort care measures afterwards. They are awaiting some last family members to arrive to pay their respects to the patient, as well as for a possible last rites if possible before proceeding with a palliative extubation and full comfort care measures afterwards. At this time, we will keep patient on the Levophed and on ventilator support while we are waiting family members. She does have an updated Medical Orders for Life Sustaining Treatment (MOLST) form in the chart, which has been signed by both of her daughters indicating the DNR. CAROLA
[2018-08-28] MEDS ORDERED: LORazepam 2 MG/ML VIAL (J2060) IV PRN (11:00)
[2018-08-28] MEDS ORDERED: MORPHINE 4 MG/ML 1ML VIAL/SYRINGE (J2270) IV PRN (11:00)
--- NOTE | 2018-08-28 16:17 | DS.PDOC ---
Discharge Summary General Date of Admission Aug 28, 2018 at 05:22 Date of Discharge 08/28/18 Attending Physician: RAJNI DURHAM MD Discharge Summary PROCEDURES PERFORMED DURING STAY: Triple lumen central venous catheter placement ADMITTING DIAGNOSES: 1. Cardiac arrest DISCHARGE DIAGNOSES: 1. Cardiac arrest 2. Shock COMPLICATIONS/CHIEF COMPLAINT: Cardiac Arrest. HISTORY OF PRESENT ILLNESS: Ms. Dejesus is an 83-year-old female with a history of atrial fibrillation, pulmonary embolism (PE) - on anticoagulation, CVA, chronic obstructive pulmonary disease (COPD) with chronic hypoxemic respiratory failure - on 2 liters nasal cannula oxygen supplementation, history of previous gastrointestinal (GI) bleed, hypothyroidism, history of an ovarian mass who presented to the hospital after cardiac arrest at home. As per patient's family, she had been complaining of increasing lethargy and sleepiness for the past few days as well as intermittent nausea. Earlier that day, the patient had been feeling nauseous, did not have any episodes of vomiting. She did not notice any blood in her stool. She had denied any chest pain. She has chronic shortness of breath, which is unchanged. The patient is still currently an active smoker of approximately four cigarettes a day. Ear lier in the evening, the patient's family reported she had been in the kitchen when they heard a thud and found the patient on the floor. She was still breathing at that time. However, she then was noted to stop breathing. The patient's daughter called --1 and attempted to start cardiopulmonary resuscitation (CPR) but was not very successful. Emergency medical services (EMS) arrived and CPR was started at that time. The patient was noted on EMS arrival to be in a pulseless electrical activity (PEA) arrest. She had approximately five rounds of epi given during CPR within approximately 30-35 minutes of CPR. She had return of spontaneous circulation (ROSC) achieved. The patient was intubated during the code. On arrival to the emergency department (ED), she was hypotensive and was started on Levophed as well as given normal saline bolus. In the ED, the patient was unresponsive. Did not appear to have a gag reflex, her pupils were dilated and unresponsive as well. She was sent for imaging. The patient was also given in the ED Zosyn for broad-spectrum antibiotics. HOSPITAL COURSE: Post arrest, the patient has been unresponsive off of any sedation. She has no gag reflex, no corneal reflex, pupils are dilated and unresponsive. She is not overbreathing the ventilator. Patient is requiring maximum levophed for blood pressure support. Discussed with the patient's two daughters (HCP) at the bedside about her poor prognosis given likely anoxic brain injury. The patient had previously been a full code; however, had mentioned that if she were to be dependent on ventilator that she would not want to be kept alive that way. At this time, the patient's family had all arrived and after discussion determined that patient would have wanted to be DNR and as per prior [facility] discussion would be palliatively extubated to full comfort care measures only. DISCHARGE MEDICATIONS: Please see below. ALLERGIES: Please see below. PHYSICAL EXAMINATION ON DISCHARGE: Temperature 97, pulse 73, respirations 18, blood pressure 94/50, oxygen saturation (O2 sat) 100% on 50% FiO2. General: Patient is intubated, is not sedated, is unresponsive to painful stimuli. HEENT: Normocephalic, atraumatic. Pupils are dilated and unresponsive on the right. There is a surgical pupil on the left. Dry mucous membranes. Neck is supple. Trachea is midline. No palpable adenopathy. Cardiac: Regular rate and rhythm. Normal S1, S2, faint systolic murmur auscultated. Pulmonary: Diminished breath sounds bilaterally, more decreased on the left base than on the right. Abdomen is soft, nondistended. There is an orogastric (OG) tube in place draining maroon-colored fluid. Extremities: There is some nonpitting lower extremity edema noted bilaterally. There are scabbed wounds in her extremities, which appear from excoriation. She was also noted to have bed bugs in the ED in her inguinal region when undressed. LABORATORY DATA: Please see below. IMAGING: Head CT showed bilateral mastoiditis and otitis media. There was probable old nasal fractures and an old small lacunar infarct in the left basal ganglia. There appears to have some loss of the cortical zavala matter/white matter differentiation and some mild effacement. Chest CT showed ET tube tip 1.3 cm above the laz. There is a right internal jugular line in the cavoatrial junction. There is evidence of emphysematous changes in the lungs with some interstitial prominence and patchy infiltrates with a pleural effusion on the left slightly greater than right and evidence of lower lobe atelectasis and consolidation, more on the left than on the right. There is a trace pericardial effusion noted. There are also fractures in the 3rd to 7th ribs bilaterally. CT abdomen and pelvis: There is no intraperitoneal free air. The previously noted rib fractures are seen again. There is a Weinstein catheter in the bladder. There is evidence of colonic diverticulosis without acute diverticulitis. There is gas in the fundal endometrium of the uterus as well as a mass extending anteriorly from the uterine fundus. This mass appears similar compared to the previous CT in 2013. There are renal cysts on the left. PROGNOSIS: Poor DISCHARGE PLAN: DISPOSITION: 20 . DISCHARGE INSTRUCTIONS: 1. DISCHARGE CONDITION: TIME SPENT ON DISCHARGE: Greater than 30 minutes. Vital Signs/I&Os Vital Signs Date Time Temp Pulse Resp B/P (MAP) Pulse Ox O2 Delivery O2 Flow Rate FiO2 08/28/18 12:00 23 40 08/28/18 11:47 74 105/52 (69) 98 08/28/18 08:00 98.7 08/28/18 06:39 Ventilator 08/28/18 05:04 20.0 Laboratory Data Labs 24H Laboratory Tests 2 08/28/18 01:51: Blood Gas Bicarbonate Standard 12.1L, Arterial Blood pH 7.054*L, Arterial Blood Partial Pressure CO2 49.2H, Arterial Blood Partial Pressure O2 190.3H, Arterial Blood Total CO2 14.9L, Arterial Blood HCO3 13.4L, Arterial Blood Base Excess - 15.4L, Arterial Blood Oxygen Saturation 99.2H 08/28/18 03:09: Immature Granulocyte % (Auto) 4.6H, White Blood Count 9.3, Red Blood Count 2.73L, Hemoglobin 4.9*L, Hematocrit 21.0L, Mean Corpuscular Volume 76.9L, Mean Corpuscular Hemoglobin 17.9L, Mean Corpuscular Hemoglobin Concent 23.3L, Red Cell Distribution Width 20.1H, Platelet Count 258, Neutrophils (%) (Auto) 83.7H, Lymphocytes (%) (Auto) 9.7L, Monocytes (%) (Auto) 1.4, Eosinophils (%) (Auto) 0.4, Basophils (%) (Auto) 0.2, Neutrophils # (Auto) 7.8H, Lymphocytes # (Auto) 0.9L, Monocytes # (Auto) 0.1, Eosinophils # (Auto) 0.0, Basophils # (Auto) 0.0, Nucleated Red Blood Cells % (auto) 4.0H, Prothrombin Time 16.5H, Prothromb Time International Ratio 1.31, Activated Partial Thromboplast Time 32.1, Aspartate Amino Transf (AST/SGOT) 368H, Alanine Aminotransferase (ALT/SGPT) 223H, Alkaline Phosphatase 89, Total Bilirubin 0.4, Direct Bilirubin 0.2, Total Creatine Kinase 335H, Creatine Kinase MB 7.0H, Creatine Kinase MB Relative Index 2.21, Troponin I 0.04, Total Protein 5.8L, Albumin 2.6L, Albumin/Globulin Ratio 0.81L, Lipase 223 08/28/18 03:10: Lactic Acid Level 11.1*H 08/28/18 03:17: POC Glucose (Misc Panel) 179H, POC Sodium (Misc Panel) 140, POC Potassium (Misc Panel) 5.4H, POC Chloride (Misc Panel) 107, POC Total CO2 (Misc Panel) 19.0L, POC Blood Urea Nitrogen (Misc Panel 30H, POC Ionized Calcium (Misc Panel) 4.1L, POC Creatinine (Misc Panel) 1.6H, POC Hematocrit (Misc Panel) 26.0L 08/28/18 03:23: Urine Color (JOSE) PINKH, Urine Appearance (JOSE) TURBIDH, Urine pH (JOSE) 9.0, Urine Specific Raymond (JOSE) 1.000L, Urine Protein 3+H, Bedside Urine Glucose (UA) NEGATIVE, Bedside Urine Ketones (LAB) NEGATIVE, Bedside Urine Blood POSITIVEH, Bedside Urine Nitrite (LAB) TRACEH, Bedside Urine Bilirubin (LAB) NEGATIVE, Bedside Urine Urobilinogen (LAB) NORMAL, Bedside Urine Leukocyte Esterase (L POSITIVEH, Urine Sediment Examination PERFORMED, Urine RBC TNTCH, Urine WBC 10-15H, Urine Squamous Epithelial Cells MOD AMOUNTH, Urine Transitio nal Epithelial Cells MOD AMOUNTH, Urine Renal Epithelial Cells , Urine Triple Phosphate Crystals SMALL AMOUNTH, Urine Amorphous Sediment MOD AMOUNTH, Urine Bacteria SMALL AMOUNTH, Urine Hyaline Casts NONE SEEN 08/28/18 04:26: Blood Gas Bicarbonate Standard 17.5L, Arterial Blood pH 7.274L, Arterial Blood Partial Pressure CO2 38.9, Arterial Blood Partial Pressure O2 126.9H, Arterial Blood Total CO2 18.8L, Arterial Blood HCO3 17.6L, Arterial Blood Base Excess - 8.4L, Arterial Blood Oxygen Saturation 98.6 08/28/18 05:27: Immature Granulocyte % (Auto) 1.2, White Blood Count 9.8, Red Blood Count 2.47L, Hemoglobin 4.6*L, Hematocrit 18.5L, Mean Corpuscular Volume 74.9L, Mean Corpuscular Hemoglobin 18.6L, Mean Corpuscular Hemoglobin Concent 24.9L, Red Cell Distribution Width 19.9H, Platelet Count 203, Neutrophils (%) (Auto) 90.5H, Lymphocytes (%) (Auto) 4.5L, Monocytes (%) (Auto) 3.7, Eosinophils (%) (Auto) 0.0, Basophils (%) (Auto) 0.1, Neutrophils # (Auto) 8.9H, Lymphocytes # (Auto) 0.4L, Monocytes # (Auto) 0.4, Eosinophils # (Auto) 0.0, Basophils # (Auto) 0.0, Nucleated Red Blood Cells % (auto) 1.4H 08/28/18 06:57: Anion Gap 10, Glomerular Filtration Rate 32.9, Blood Urea Nitrogen 37H, Creatinine 1.60H, Sodium Level 143, Potassium Level 4.7, Chloride Level 110H, Carbon Dioxide Level 23, Calcium Level 7.4L, Phosphorus Level 4.1, Total Creatine Kinase 903#H, Magnesium Level 2.4, Creatine Kinase MB 23.0H, Creatine Kinase MB Relative Index 2.55, Troponin I 0.12#H 08/28/18 07:44: Lactic Acid Followup at 4 Hours 3.9*H CBC/BMP Laboratory Tests 08/28/18 03:09 Red Blood Count 2.73 L, Mean Corpuscular Volume 76.9 L, Mean Corpuscular Hemoglobin 17.9 L, Mean Corpuscular Hemoglobin Concent 23.3 L, Red Cell Distribution Width 20.1 H, Neutrophils (%) (Auto) 83.7 H, Lymphocytes (%) (Auto) 9.7 L, Monocytes (%) (Auto) 1.4, Eosinophils (%) (Auto) 0.4, Basophils (%) (Auto) 0.2, Neutrophils # (Auto) 7.8 H, Lymphocytes # (Auto) 0.9 L, Monocytes # (Auto) 0.1, Eosinophils # (Auto) 0.0, Basophils # (Auto) 0.0 08/28/18 05:27 Red Blood Count 2.47 L, Mean Corpuscular Volume 74.9 L, Mean Corpuscular Hemoglobin 18.6 L, Mean Corpuscular Hemoglobin Concent 24.9 L, Red Cell Distr ibution Width 19.9 H, Neutrophils (%) (Auto) 90.5 H, Lymphocytes (%) (Auto) 4.5 L, Monocytes (%) (Auto) 3.7, Eosinophils (%) (Auto) 0.0, Basophils (%) (Auto) 0.1, Neutrophils # (Auto) 8.9 H, Lymphocytes # (Auto) 0.4 L, Monocytes # (Auto) 0.4, Eosinophils # (Auto) 0.0, Basophils # (Auto) 0.0 08/28/18 06:57 Calcium Level 7.4 L, Phosphorus Level 4.1, Total Creatine Kinase 903 #H Microbiology Microbiology 08/28/18 Blood Culture, Received Pending 08/28/18 Blood Culture, Received Pending 08/28/18 Gastrointestinal Tract Panel (PCR) - Final, Complete 08/28/18 Urine Culture, Received Pending Discharge Medications Scheduled Amlodipine Besylate (Norvasc) 5 Mg Tab, 10 MG PO DAILY, (Reported) Apixaban (Eliquis) 2.5 Mg Tablet, 2.5 MG PO BID, (Reported) Simvastatin (Zocor) 20 Mg Tab, 20 MG PO DAILY, (Reported) [Oxygen] , 2 L NA DAILY, (Reported) Scheduled PRN Acetaminophen (Acetaminophen) 325 Mg Tablet, 650 MG PO Q6H PRN for PAIN, (Reported) Hydrocodone/Acetaminophen (Hydrocodone-Acetamin 5-325 mg) 1 Each Tablet, 0.5-1 TAB PO Q12H PRN for PAIN, (Reported) Miscellaneous Medications [Patient Comments] , (Reported) PATIENT IS INTUBATED AT THIS TIME. INFORMATION PROVIDED BY DAUGHTER. NO TIMES AVAILABLE FOR LAST TAKEN Allergies Coded Allergies: No Known Drug Allergies (Verified Allergy, Unknown, 08/28/18) RAJNI DURHAM MD Aug 28, 2018 16:17
== END 2018-08-28 13:31 | disposition expired | DRG 296 ==
LOC: M ED 01:34 → M ED INP 05:22 → M ICU 06:23
PROVIDERS: ADMIT Internal Medicine Pulmonary Disease; ATTEND Internal Medicine Pulmonary Disease
PROC: 5A1935Z Respiratory Ventilation, Less than 24 Consecutive Hours (ICD-10-PCS; principal; 2018-08-28)
DX: I46.9 Cardiac arrest, cause unspecified (principal); K72.00 Acute and subacute hepatic failure without coma; R57.9 Shock, unspecified; N17.9 Acute kidney failure, unspecified; E87.2 Acidosis; G93.1 Anoxic brain damage, not elsewhere classified; J96.11 Chronic respiratory failure with hypoxia; J98.11 Atelectasis; S22.43XA Multiple fractures of ribs, bilateral, initial encounter for closed fracture; I48.91 Unspecified atrial fibrillation; Z86.711 Personal history of pulmonary embolism; Z79.01 Long term (current) use of anticoagulants; Z86.73 Personal history of transient ischemic attack (TIA), and cerebral infarction without residual deficits; J44.9 Chronic obstructive pulmonary disease, unspecified; Z51.5 Encounter for palliative care; Z66 Do not resuscitate; E03.9 Hypothyroidism, unspecified; E78.5 Hyperlipidemia, unspecified; K57.30 Diverticulosis of large intestine without perforation or abscess without bleeding; K64.8 Other hemorrhoids; F17.210 Nicotine dependence, cigarettes, uncomplicated; W18.30XA Fall on same level, unspecified, initial encounter; Y92.009 Unspecified place in unspecified non-institutional (private) residence as the place of occurrence of the external cause